=== PATIENT | male | born 1980 | race Caucasian/White ===

== ENCOUNTER 2024-01-03 13:27 | Emergency (ER) | payer OTHER, SELFPAY ==
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
--- NOTE | ~2024-01-03 | XR_ITS ---
EXAMINATION: XR cervical spine 4-5V DATE: 01/03/2024 14:24 INDICATION: Neck pain. TECHNIQUE: 4 views of cervical spine were obtained. COMPARISON: None. FINDINGS: There is 10 degrees levoscoliosis of cervical spine. Vertebral body heights and interverteb ral disc heights are normal. There is multilevel mild facet joint osteoarthritis. No central canal st enosis or prevertebral soft tissue swelling. IMPRESSION: 1. Cervical levoscoliosis. 2. Mild cervical facet joint osteoarthritis. Reviewed, dictated and finalized at location A.
[2024-01-03 13:43] VITALS: BP 140/83; PULSE 57; RESP 16; TEMP 37.3; O2SAT 99
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
== END 2024-01-03 14:46 | disposition home or self-care (01) ==
PROVIDERS: Emergency Provider Nurse Practitioner Family; PCP Family Medicine
DX: S16.1XXA Strain of muscle, fascia and tendon at neck level, initial encounter (principal); S20.212A Contusion of left front wall of thorax, initial encounter; S39.012A Strain of muscle, fascia and tendon of lower back, initial encounter; V49.49XA Driver injured in collision with other motor vehicles in traffic accident, initial encounter
CPT/HCPCS: 71101; 72050; 99214; G0463

== ENCOUNTER 2024-02-11 11:21 | Outpatient (CLI) | payer OTHER, SELFPAY ==
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
== END 2024-02-11 11:22 ==
PROVIDERS: PCP Family Medicine; Visit Provider Nurse Practitioner Adult Health
DX: M25.561 Pain in right knee (principal)
CPT/HCPCS: 73562

== ENCOUNTER 2024-03-16 12:07 | Outpatient (CLI) | payer OTHER, SELFPAY ==
--- NOTE | ~2024-03-16 | MR_ITS ---
EXAMINATION: MR knee RT wo con DATE: 03/16/2024 12:48 INDICATION: Right knee pain TECHNIQUE: Magnetic resonance imaging (MRI) of the right knee was performed without intravenous contr ast. Sequences included coronal PD-weighted FSE, coronal PD-weighted FS FSE, sagittal T2-weighted FS E, sagittal PD-weighted FS FSE and axial PD weighted fat saturated FSE. COMPARISON: Right knee radiographs dated 02/11/2024 FINDINGS: Medial compartment: Complex medial meniscal tear which includes a laterally displaced bucket-handle flap which extends fr om the anterior to the posterior horn along the medial side of the intercondylar notch. There is a lo ngitudinal horizontal tear extending to the inferior articular surface of the nondisplaced portion of the posterior horn and posterior body. Articular cartilage is normal. Lateral compartment: Lateral meniscus is normal. Articular cartilage is normal. Patellofemoral compartment: Articular cartilage is normal. Ligaments and tendons: Anterior and posterior cruciate ligaments are normal. The medial collateral ligament and fibular caity ateral ligament complex are normal. The extensor mechanism is normal. The visualized medial and later al hamstring tendons as well as the iliotibial band are normal. Fluid: Physiologic amount of fluid in the joint space. No loose osteochondral bodies identified. There is a very small Bolden's cyst. Osseous/other: Normal marrow signal. No fracture or pathologic marrow replacing process. IMPRESSION: 1. Complex medial meniscal tear with laterally displaced bucket-handle flap. Reviewed, dictated and finalized at location B.
== END 2024-03-16 12:08 | disposition home or self-care (01) ==
PROVIDERS: PCP Family Medicine; Visit Provider Nurse Practitioner Adult Health
DX: S83.251A Bucket-handle tear of lateral meniscus, current injury, right knee, initial encounter (principal); S83.231A Complex tear of medial meniscus, current injury, right knee, initial encounter; V89.2XXA Person injured in unspecified motor-vehicle accident, traffic, initial encounter
CPT/HCPCS: 73721

== ENCOUNTER 2024-05-18 02:38 | Day surgery (SDC) | payer OTHER, SELFPAY ==
[2024-05-07 14:02] VITALS: BMI 27.3
--- NOTE | 2024-05-07 14:08 | PC.NURSE ---
Report to the Outpatient Waiting Room, entrance under the green pavilion located off [facility], at time _1pm_ on date _[id number]_. Planned Procedure Time: _3pm_.? Time changes happen often and if your time is changed the preop area will call you the afternoon before. - You and your visitor will be asked to self-screen and do not enter if you have any COVID symptoms. Please call surgeon if you need to reschedule. - A mask is optional within the hospital at this time. Patients may have clear liquids (water, carbonated beverages, clear teas, apple juice) until 3 hours prior to surgery with a maximum of 20 ounces. - No food from midnight until time of surgery and no smoking Take only the following medications with a SIP of water on the morning of surgery: ____None____ DO NOT STOP ANY OF YOUR OTHER PRESCRIPTION MEDICATIONS PRIOR TO SURGERY EXCEPT THE FOLLOWING Medications to discontinue per physician __Ibuprofen____ Date to take last pjiq__[id number]___ Please no make-up, nail luxembourger, hairspray, perfume, deodorant, or body powder the day of surgery.? No jewelry (including any body piercings) or valuables the day of surgery, leave them at home.? Please take a shower or bath the night before, or the morning of, surgery with an antibacterial soap.? Wear comfortable, loose fitting clothing.? - Jewelry must be removed prior to entering the operating room.? Rings and piercings that are not removed may be cut off. - The hospital will not accept responsibility for valuables.? - Please leave all valuables, including medications, at home the day of surgery. If you are going home after surgery, a licensed wheelchair van driver must drive you home.? - NO public transportation without another adult if you receive anesthesia. - We recommend that an adult stay with you for 24 hours following discharge. - We also recommend that you do not drive, make important decision, drink alcoholic beverages, or take any drugs that were not prescribed by your health care provider for at least 24 hours after your discharge time. Follow any additional instructions given to you from your surgeon. Telephone instructions given to __Anderson__and asked if any additional questions and then verbalized understanding. Patient advised to call surgeon office or pre surgery nurse liaison [phone] if any additional questions.
[2024-05-18] VITALS (11 sets, daily range): BP systolic 114–134; BP diastolic 60–76; PULSE 52–84; RESP 12–18; TEMP 36.3–36.4; O2SAT 97–100
[2024-05-18] MEDS: ACETAMINOPHEN 500 MG TABLET 1000 MG PO (13:15)
[2024-05-18] MEDS: LACTATED RINGERS 1,000 ML 30 ML IV CONT ×2 (13:30→17:06)
[2024-05-18] MEDS: KETOROLAC 15 MG/ML VIAL (*BKC) IV PUSH (13:45)
--- NOTE | 2024-05-18 14:02 | P.PNAN_ITS ---
Anes - Initial Pre Proc Eval Procedure: Operation Date: 05/18/24 15:00 Proposed Procedures p Right Knee Arthroscopic Partial Medial Meniscectomy - Praveen James MD Date/Time: 05/18/24 14:02 Surgeon: Praveen James MD Pre Op Diagnosis: Rt Knee Medial Meniscus Tear Patient Data Age: 43 Gender: M Height: 1.78 m Weight: 86.4 kg Allergies Allergy/AdvReac Type Severity Reaction Status Date / Time No Known Allergies Allergy Verified 05/08/24 14:38 Home Medications Medication Instructions Recorded Confirmed Type ibuprofen 600 mg tablet 600 mg PO Q6H PRN pain #30 tabs 01/03/24 05/08/24 Rx hydrocodone 5 mg-acetaminophen 325 1 - 2 tablet PO Q4-6H PRN pain 7 05/18/24 Rx mg tablet days #30 tabs Patient hx anesthesia problems: none Family hx anesthesia problems: none Results Review: All pre-operative results and documents have been reviewed as part of the pre- operative evaluation. [facility] Past Medical History Medical History BMI 25.0-25.9,adult Cervical spine pain Complex tear of medial meniscus as current injury Lumbar spine pain Right knee pain Family History Family History Father Hypertension COPD (chronic obstructive pulmonary disease) Mother No problems noted. Sibling No problems noted. Other Malignant neoplasm of prostate Social History Social History Smoking status: Never smoker Second hand tobacco smoke exposure: Yes Alcohol intake: current Drinks per week: 2 Substance use: never Substance use type: does not use Do You Feel Safe in your Home?: Yes Lack of Transportation: No Lack of Food: Never True Current Housing: I Have Housing Concerned About Future Housing: No Difficulty Paying Gas/Electric Bills: No Difficulty Paying for Meds: No Currently Unemployed: No Education: Master's Degree or Higher Difficulty w/ Childcare or Family Care: No Living arrangements: with family Occupation/Education: occupation 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 Informed Consent: The patient's anesthetic plan and its attendant risks and benefits were discussed with the patient/family/POA. Questions were solicited and answers provided to the satisfaction of the patient/family/POA.
--- NOTE | 2024-05-18 14:47 | WPDHPUPDATE1 ---
History and Physical Update Update Date/Time: 05/18/24 14:47 History and Physical has been reviewed, including an updated exam of the patient. There are NO changes in the patient's condition. Risks, benefits, and alternatives have been discussed and questions answered. Patient agrees to proceed with procedure.
[2024-05-18] MEDS: ceFAZolin 2 GM/D5W 50 ML 2 GM/50 ML BAG IVPB (14:56)
[2024-05-18] MEDS: BUPIVACAINE/EPINEPHRINE 0.5% 50 ML VIAL 20 ML INFILTRATE (15:30)
--- NOTE | 2024-05-18 15:58 | P.OP_ITS ---
Procedure Note - Detailed Date of Procedure 05/18/24 Pre-op Diagnosis Rt Knee Medial Meniscus Tear Post-op Diagnosis Same Procedure Performed Arthroscopic partial medial meniscectomy, right knee. Surgeon Praveen James MD Anesthesia General Findings Extensive bucket-handle tear of the medial meniscus. Most of the meniscus involved. Much of the meniscus was displaced into the intercondylar notch. A peripheral rim remained. This was with significant horizontal cleavage in the posterior aspect. No other areas of chondromalacia or abnormal findings. Description of Procedure The patient was identified and the surgical site confirmed and signed in the p reoperative holding area. Antibiotics were started per protocol, and the patient was brought to the operative room and transferred to the OR table. A general anesthetic was administered. Supine position with the operative lower extremity position in the leg angelo after placement of a well padded tourniquet. The leg support was lowered and the contralateral limb was supported with a soft bolster. The knee was prepped and draped in the usual sterile fashion. A time- out was performed. The portal sites were marked and infiltrated with 0.5% Marcaine 20 mL. The limb was exsanguinated and the tourniquet inflated to 300 mL Hg. Standard inferolateral and inferomedial portals were established. Inflow was obtained with the saline pump. The camera was introduced. Diagnostic inspection of the joint was accomplished. The meniscus was debrided with the arthroscopic shaver and punches until stable. The radiofrequency probe was also used for further d?bridement. The arthroscopic instruments were removed. The tourniquet released and wounds closed with subcutaneous 4-0 Monocryl absorbable suture. Steri strips and a sterile dressing were applied. A light elastic wrap was placed. The patient was extubated and brought to the recovery room in stable condition. Estimated Blood Loss 5 Drains No Complications No immediate complications Condition Stable Disposition PACU [facility] Billing Surgery - Charge Forward: Surgery Billing
[2024-05-18] MEDS: ONDANSETRON INJ 4 MG/2 ML VIAL IV PUSH (17:00)
[2024-05-18] MEDS: FAMOTIDINE 20 MG/2 ML VIAL IV PUSH (17:26)
[2024-05-18] MEDS: oxyCODONE HCL (*CRX) 5 MG TAB IR PO (17:42)
== END 2024-05-18 18:25 | disposition home or self-care (01) ==
PROVIDERS: PCP Family Medicine; Visit Provider Orthopaedic Surgery
PROC: (CPT 29870; principal; 2024-05-18 15:00)
DX: S83.211A Bucket-handle tear of medial meniscus, current injury, right knee, initial encounter (principal); V49.40XA Driver injured in collision with unspecified motor vehicles in traffic accident, initial encounter
CPT/HCPCS: 29881; A9270; J0690; J1100; J1171; J1885; J2003; J2250; J2405; J2704; J3010; J7120